=== PATIENT | female | born 1970 | race Caucasian/White ===

== ENCOUNTER 2018-02-06 00:49 | Outpatient (CLI) | payer BC, SELFPAY ==
--- NOTE | 2018-02-06 10:18 | DI.MAMMO_ITS ---
SYMPTOM/DIAGNOSIS: 6 MO FOLLOW UP RIGHT BREAST MAMMOGRAM: Mammograms were interpreted according to the usual protocol including computer analysis with CAD system, tomosynthesis and C view imaging. When compared with the previous images of 06/14/2017 again noted is a well circumscribed area of nodularity in the medial portion of the right breast. There has been no definite interval change. ULTRASOUND: A 7 x 5 x 10 mm ovoid area of diminished echogenicity is noted in the medial right breast tissue with no appreciable interval change when compared with the prior study. This region could represent a region of central fat or proteinaceous cyst and is unlikely to represent an intramammary lymph node. There is nothing specific to suggest a malignancy and follow up surveillance with repeat right breast mammogram and if appropriate ultrasound in one year is recommended. Category 2, breast density category B. MQSA ASSESSMENT OF FINDINGS: Negative with benign findings. Category 2. Patient will receive a letter notifying them of these results. BI-RADS category B. There are scattered areas of fibroglandular density.
== END 2018-02-06 01:09 ==
PROVIDERS: PCP Family Medicine; Visit Provider Family Medicine
DX: Z12.31 Encounter for screening mammogram for malignant neoplasm of breast (principal); R92.8 Other abnormal and inconclusive findings on diagnostic imaging of breast; N60.81 Other benign mammary dysplasias of right breast
CPT/HCPCS: 76642; 77061; 77065; G0279

== ENCOUNTER 2018-07-13 19:59 | Emergency (ER) | payer BC, SELFPAY ==
[2018-07-13 20:05] VITALS: BP 122/74; PULSE 71; RESP 18; TEMP 37; O2SAT 98
[2018-07-13] MEDS: Tetracaine 0.5% 4 ML BTL (20:13)
[2018-07-13] MEDS: Fluorescein STRIPS 100/BOX 1 MG (20:13)
--- NOTE | 2018-07-13 20:22 | W.ED.GENAD ---
Discharge Plan Disposition Patient Disposition: HOME Condition: Improving Discharge Details Chief Complaint: EyeProblem Clinical Impression: Abrasion of cornea, left Primary Care Provider: Laverne Carrion ED Provider: Pablo Quevedo Home Meds and New Rx's Prescriptions: New erythromycin 5 mg/gram (0.5 %) Ointment 3.5 g OS TID 5 Days Qty: [id number] RF: 0 Continued fluticasone [Flonase Allergy Relief] 50 mcg/actuation [place],Suspension 1 spray Intranasal DAILY RF: 0 Control 1 tab PO DAILY RF: 0 Discharge Instructions Instructions: Corneal Abrasion (ED) Additional Instructions: Erythromycin ointment to left eye 3-4 times per day for 5 days. Please call [facility] Sunday for a follow-up appointment to recheck left corneal abrasion. Return for worsening discomfort or any other acute concerns. Tylenol and ibuprofen as needed for pain Medical Decision Making 40-year-old female struck by treatment to the left eye earlier in the day. Ongoing discomfort with mild photophobia brought her to the emergency department this evening. She is unremarkable vital signs, visual acuity is preserved. Her examination reveals corneal abrasion just to the temporal aspect of the axis of vision, no Domo sign negative. Tetanus updated per will place on erythromycin ointment, [id number]-krsoqda analgesia, she is a patient of [facility] and she will follow-up with them to ensure resolution HPI General Mode of arrival: ambulatory. Date/Time Provider Initiated Documentation: 07/13/18 20:00. Limitations to Documentation: no limitations. Information obtained by: patient. History of Present Illness 48 year old F presents to the emergency department with the chief complaint of Struck by tree branch left eye, pain, described as moderate, Quality is described as aching, and is localized to the eyes and left. Patient reports no radiation. Patient started experiencing this hour(s) and it has been constant. No relieving factors improve symptom(s), No exacerbating factors reported . Patient notes other (Photophobia). Patient did receive the following treatments prior to arrival, none Related Data Home Medications Medication Instructions Recorded Confirmed Control 1 tab PO DAILY 07/13/18 erythromycin 3.5 g OS TID 5 Days #73841 gm 07/13/18 fluticasone [Flonase Allergy 1 spray INTRANASAL DAILY 07/13/18 07/13/18 Relief] Previous Rx's Medication Instructions Recorded erythromycin 3.5 g OS TID 5 Days #42537 gm 07/13/18 Allergies Allergy/AdvReac Type Severity Reaction Status Date / Time No Known Allergies Allergy Unverified 07/13/18 20:09 General Stated Complaint: EyeProblem ALEX: 4 Review of Systems Review of Systems 6 systems reviewed and otherwise - [facility] Social History Smoking and Tabacco status: Never Exam Narrative Exam Narrative: GEN: awake, alert, oriented 3. Pleasant, well groomed, interactive. HEAD: Normocephalic, atraumatic ENT: Mucous membranes moist, oropharynx unremarkable, External ear exam unremarkable EYES: PERRL, EOMI. left eye with corneal abrasion on temporal aspect at the cusp of iris. No Domo sign. Mild injection left. No foreign NECK: Full ROM, no MACKENZIE, no menigismus Neuro: Grossly normal neurologic exam, conversant, interactive. Psych: Speech fluent, thoughts congruent, affect normal Course Vital Signs Temperature 37.0 C 07/13/18 20:05 Pulse 71 07/13/18 20:05 Respiratory Rate 18 07/13/18 20:05 Blood Pressure 122/74 07/13/18 20:05 Pulse Oximetry 98 07/13/18 20:05 Temperature 37.0 C 07/13/18 20:05 Temperature Source Temporal Artery Scan 07/13/18 20:05 Pulse 71 07/13/18 20:05 Respiratory Rate 18 07/13/18 20:05 Respiratory Effort 07/13/18 20:05 Blood Pressure 122/74 07/13/18 20:05 Pulse Oximetry 98 07/13/18 20:05 Oxygen Delivery Method Room Air 07/13/18 20:05 Oxygen Flow Rate 0 07/13/18 20:05 Pain Level 0 07/13/18 20:05
[2018-07-13] MEDS: Erythromycin Ophth Oint 3.5 GM TUBE OS (20:37)
[2018-07-13] MEDS: Erythromycin Ophth Oint 3.5 GM TUBE (20:39)
[2018-07-13 21:00] VITALS: BP 118/70; PULSE 73; RESP 18; O2SAT 98
== END 2018-07-13 20:48 | disposition home or self-care (01) ==
PROVIDERS: Emergency Provider Emergency Medicine; PCP Family Medicine
DX: S05.02XA Injury of conjunctiva and corneal abrasion without foreign body, left eye, initial encounter (principal); W22.8XXA Striking against or struck by other objects, initial encounter; Y93.24 Activity, cross country skiing
CPT/HCPCS: 90471; 99284; 99283

== ENCOUNTER 2018-10-14 00:19 | Outpatient (CLI) | payer BC, SELFPAY ==
--- NOTE | 2018-10-14 09:46 | DI.COMBO_ITS ---
SYMPTOM/DIAGNOSIS: SCREENING, F/U ABNL MAMMO ON 10/14 MAMMOGRAMS AND RIGHT BREAST ULTRASOUND: Mammograms were interpreted according to the usual protocol including computer analysis with CAD system, tomosynthesis and C view imaging. Mammogram and right breast ultrasound are interpreted in conjunction. Mammogram was initially intended as a screening examination but the patient recently noted a palpable abnormality in the inferior portion of her right breast. The examination is compared with a previous mammogram and ultrasound of 01/2018. There was a well circumscribed mass noted on the previous examination in the 6 o'clock position in the right breast measuring up to about 1 cm. in diameter at that time. On today's examination, this measures up to about 3 cm. in diameter. This mass contains solid and cystic components and little, if any, internal vascular flow on doppler evaluation. There is mild posterior acoustic enhancement. The borders of the mass are not perfectly circumscribed. The mass is lobulated. Mammographically, apart from the marked interval increase in size of the multi lobulated mass of the inferior aspect of the right breast, no new mass or clumped microcalcification is seen in either breast and there has been no other significant change in appearance in comparison with previous mammograms. CONCLUSION: Marked interval increase in size of indeterminate right breast mass in approximately the 6 o'clock position to 5 o'clock position. The possibility of malignancy is raised on the basis of the interval increase in size and the echo characteristics of this lesion. Biopsy is recommended. Category 4. Breast density, Category C. MQSA ASSESSMENT OF FINDINGS: Suspicious. Biopsy should be considered. Category 4. Patient will receive a letter notifying them of these results. Bi-RADS category C. The breasts are heterogeneously dense, which may obscure small masses.
== END 2018-10-14 00:39 ==
PROVIDERS: PCP Family Medicine; Visit Provider Nurse Practitioner Adult Health
DX: Z12.31 Encounter for screening mammogram for malignant neoplasm of breast (principal); R92.8 Other abnormal and inconclusive findings on diagnostic imaging of breast; N63.14 Unspecified lump in the right breast, lower inner quadrant
CPT/HCPCS: 76642; 77063; 77067

== ENCOUNTER 2018-10-29 06:22 | Day surgery (SDC) | payer BC, SELFPAY ==
[2018-10-29 06:32] VITALS: BP 116/71; PULSE 62; RESP 16; TEMP 36.6; O2SAT 100
[2018-10-29] MEDS: Lactated Ringers 1,000 ML 80 ML IV (06:32)
[2018-10-29] MEDS: ceFAZolin 2 GM/50 ML BAG IVPB (07:34)
--- NOTE | 2018-10-29 07:57 | BREAST_PTH ---
PATIENT: Dacia Oconnor LOC: [facility] U#:[id number] AGE/SX: 48/F ROOM: RE10/29/[address]: Neena Dozier MD : 1970 BED: DIS: 10/29/2018 SPEC #: [id number] RECD: 10/29/18 12:50 STATUS: MUKUL REQ #: [id number] MAXWELL: 10/29/18 07:[address]: Neena Dozier DEPT: Surgical Specimen RECD BY: Laura Stauffer ENTERED: 10/29/18 12:50 SP TYPE: Breast OTHR DR: Laverne Carrion Tissues: 1 - BREAST INCISION/EXCISION Procedures: GROSS AND MICRO LEVEL 5 Comments: [id number]
[2018-10-29] MEDS: Lidocaine 1% Multi-Dose 50 ML VIAL (07:59)
--- NOTE | 2018-10-29 08:26 | W.PM.DSUDISC ---
Discharge Plan Disposition Patient Disposition: HOME Condition: Good Discharge Details Attending Provider: Neena Dozier Primary Care Provider: Laverne Carrion Home Meds and New Rx's Prescriptions: No Action fluticasone propionate [Flonase Allergy Relief] 50 mcg/actuation [place],Suspension 1 spray Intranasal DAILY RF: 0 Control 1 tab PO DAILY RF: 0 Emergen-C 1,000 mg Powder Effervescent In Packet 2,000 mg PO DAILY RF: 0 Discharge Instructions Referrals: Neena Dozier MD [ [facility] STAFF PHYSICIAN] - (Return for office visit in 1-2 weeks as needed. My office will call with biopsy results) Activity:: Activity as Tolerated Remove Dressings/Wound Care:: 24 hours Shower/Bathe:: 24 hours Diet:: As Tolerated Discharge Orders Discharge Orders: Discharge Order (Routine); Ordered 10/29/18 Ordered By: Neena Dozier Discharge Data Discharge Comment: Steri strips stick for about a week. Remove when they are starting to peel off.
--- NOTE | 2018-10-29 08:31 | PDOC.DSDIS_ITS ---
Discharge Plan Disposition Patient Disposition: HOME Condition: Good Discharge Details Attending Provider: Neena Dozier Primary Care Provider: Laverne Carrion Home Meds and New Rx's Prescriptions: No Action fluticasone propionate [Flonase Allergy Relief] 50 mcg/actuation [place] ,Suspension 1 spray Intranasal DAILY RF: 0 Control 1 tab PO DAILY RF: 0 Emergen-C 1,000 mg Powder Effervescent In Packet 2,000 mg PO DAILY RF: 0 Discharge Instructions Referrals: Neena Dozier MD [ [facility] STAFF PHYSICIAN] - (Return for office visit in 1-2 weeks as needed. My office will call with biopsy results) Activity:: Activity as Tolerated Remove Dressings/Wound Care:: 24 hours Shower/Bathe:: 24 hours Diet:: As Tolerated Discharge Orders Discharge Orders: Discharge Order (Routine); Ordered 10/29/18 Ordered By: Neena Dozier Discharge Data Discharge Comment: Steri strips stick for about a week. Remove when they are starting to peel off.
[2018-10-29 08:55] VITALS: BP 79/46; PULSE 58; RESP 18; TEMP 36.6; O2SAT 99
[2018-10-29 09:22] VITALS: BP 85/45; PULSE 58; RESP 18; TEMP 36.6; O2SAT 100
--- NOTE | 2018-10-29 10:12 | ROE_ITS ---
DATE OF PROCEDURE: October 29, 2018 PREOPERATIVE DIAGNOSIS: Right breast mass. POSTOPERATIVE DIAGNOSIS: Same. PROCEDURE: Excisional biopsy of right breast mass. SURGEON: Neena Dozier M.D. PATTERN WORKER: Mihir Pizano ANESTHESIA: Local and general. INDICATIONS: This is a 48-year-old woman with a palpable right breast mass for the past month or so. She had an ultrasound that demonstrated a 3 cm lesion with solid and cystic components. This had increased in size from 1 cm on prior US. Biopsy was advised. The patient has no family history of breast cancer. PROCEDURE: She was placed supine on the operating table and her right breast was prepped and draped sterilely. The mass had been marked preoperatively with the patient and was located at the 6 o'clock position. The skin here was infiltrated with local anesthetic and a transverse incision made. Subcutaneous tissue was divided down to the structure, which did appear primarily cystic in nature. This was excised completely with cautery and sent to Pathology. Palpation in the cavity revealed no other masses. Hemostasis was achieved with cautery. The site was injected with further anesthetic and then the skin closed with a running #4-0 Monocryl in a subcuticular stitched and dressed with Steri- Strips and a Tegaderm. She tolerated the procedure well and was stable to recovery. cc: Laverne Carrion M.D.
== END 2018-10-29 09:55 | disposition home or self-care (01) ==
PROVIDERS: PCP Family Medicine; Visit Provider Surgery
PROC: (CPT 19120; principal; 2018-10-29 07:30)
DX: N63.10 Unspecified lump in the right breast, unspecified quadrant (principal); Q85.8 Other phakomatoses, not elsewhere classified
CPT/HCPCS: 19120; 81025; 88307; J0690; J1885; J2250; J2405

== ENCOUNTER 2019-06-23 10:52 | Outpatient (REF) | payer BC, SELFPAY ==
[2019-06-23 19:42] LABS: HCT 40.2 % (36.0-46.0); HGB 13.3 g/dL (12.0-15.5); Mean Corp. HGB Concentration 33.1 g/dL (32.0-36.0); Mean Corpuscular Hemoglobin 29.7 pg (27.0-33.0); Mean Corpuscular Volume 89.7 fL (80-95); Mean Platelet Volume 11.1 fL (8.0-11.0); Platelet Count 298 x1000/uL (130-400); RBC 4.48 m/cumm (4.00-5.20); RBC Distribution Width 12.6 % (11.7-14.6); White Blood Cell Count 4.35 k/cumm (4.4-10.8)
[2019-06-23 20:05] LABS: Hemoglobin A1C 5.5 % (3.8-5.6)
[2019-06-23 20:22] LABS: ALT 19 U/L (14-59); AST 21 U/L (15-37); Albumin 3.5 g/dL (3.4-5.0); Alkaline Phosphatase 45 U/L (46-116); BUN 11 mg/dL (7-18); Bilirubin, Total 0.2 mg/dL (0.2-1.0); CREATININE 0.78 mg/dL (0.55-1.02); Calcium 8.5 mg/dL (8.5-10.1); Chloride 105 mmol/L (98-107); Glucose 93 mg/dL (74-106); Sodium 139 mmol/L (136-145); TSH (W/Ref FT4) 1.21 uIU/mL (0.36-3.74); Total Protein 6.6 g/dL (6.4-8.2)
== END 2019-06-23 11:12 ==
LOC: NCHCN 10:52
PROVIDERS: PCP Family Medicine; Visit Provider Family Medicine
DX: E66.3 Overweight (principal)
CPT/HCPCS: 80053; 85027; 83036; 84443

== ENCOUNTER 2019-10-21 01:43 | Outpatient (CLI) | payer BC, SELFPAY ==
--- NOTE | 2019-10-21 08:35 | DI.MAMMO_ITS ---
EXAM: MG MAMMO SCREENING CLINICAL HISTORY: SCREENING,Z12.39,HAMARTOMA,Q85.9 TECHNIQUE: Bilateral full field digital CC and MLO mammographic images were obtained with 3D tomosyn thesis and utilizing computer aided detection (CAD). COMPARISON: Available for comparison. FINDINGS: Masses/Architectural Distortion: None seen. Microcalcifications: No suspicious pleomorphic-type are seen. Skin Thickening/Nipple Retraction: None. IMPRESSION: 1. No significant interval change with no specific features of malignancy noted. 2. Unless there is more urgent need, screening mammography is recommended, as per [place] [employer] guidelines. BI-RADS Category 1 - Negative Breast Density - Category B - Scattered areas of fibroglandular density A negative radiographic report should not delay biopsy if a dominant or clinically suspicious mass is present. Up to ten percent of cancers are not identified on mammography. A negative report may reinforce clinical impression. Adenosis and dense breasts may obscure an underlying neoplasm. False positive reports average 6 to 10%. Patient will receive a letter notifying them of these results.
== END 2019-10-21 02:03 ==
PROVIDERS: PCP Family Medicine; Visit Provider Family Medicine
DX: Z12.31 Encounter for screening mammogram for malignant neoplasm of breast (principal)
CPT/HCPCS: 77063; 77067

== ENCOUNTER 2020-11-03 16:54 | Outpatient (REF) | payer BC, SELFPAY ==
[2020-11-03 20:23] LABS: ESR 5 mm/hr (0-20)
[2020-11-03 20:28] LABS: C-Reactive Protein 0.79 mg/dL (0.0-0.3); Uric Acid 4.4 mg/dL (2.6-6.0)
[2020-11-05 10:11] LABS: Cyclic Citrullinated Peptide <2.5 U/mL (<5.0)
[2020-11-05 14:14] LABS: Lyme Ab w Rflx to Lyme Confirm Negative (Negative)
[2020-11-05 15:04] LABS: ANA Interpretation Positive (Negative); ANA Titer Pattern 1:160 Speckled
[2020-11-06 00:05] LABS: Anaplasma phagocytophilum Negative (Negative); B. miyamotoi PCR Negative (Negative); Babesia divergens/MO-1 Negative (Negative); Babesia duncani Negative (Negative); Babesia microti Negative (Negative); Ehrlichia chaffeensis Negative (Negative); Ehrlichia ewingii/canis Negative (Negative); Ehrlichia muris eauclairensis Negative (Negative)
== END 2020-11-03 16:55 | disposition home or self-care (01) ==
LOC: NCHCN 16:54
PROVIDERS: PCP Family Medicine; Visit Provider Family Medicine
DX: M25.561 Pain in right knee (principal)
CPT/HCPCS: 85652; 86200; 87798; 84550; 86038; 86140; 86618

== ENCOUNTER 2021-02-25 09:31 | Outpatient (REF) | payer BC, SELFPAY ==
--- NOTE | 2021-02-25 08:30 | PAPFT_PTH ---
PATIENT: Dacia Oconnor LOC: [facility]#:[id number] AGE/SX: 50/F ROOM: RE02/25/[address]: Laverne Carrion : 1970 BED: DIS: 02/25/2021 SPEC #: [id number] RECD: 02/28/21 11:14 STATUS: MUKUL REAlex #: [id number] MAXWELL: 02/25/21 08:[address]: Laverne Carrion DEPT: [facility] Cytology RECD BY: Екатерина Arriaga Tissues: 1 - CX/ENDOCX FOR PAP SMEARS Procedures: PAP THIN PREP/UVM Screening Comments: [id number] (UNSATISFACTORY FOR EVALUATION)
== END 2021-02-25 09:32 | disposition home or self-care (01) ==
LOC: NCHCN 09:31
PROVIDERS: PCP Family Medicine; Visit Provider Family Medicine
DX: Z12.4 Encounter for screening for malignant neoplasm of cervix (principal); Z01.419 Encounter for gynecological examination (general) (routine) without abnormal findings; R87.615 Unsatisfactory cytologic smear of cervix
CPT/HCPCS: 88142

== ENCOUNTER 2021-04-22 00:29 | Outpatient (CLI) | payer BC, SELFPAY ==
--- NOTE | 2021-04-22 08:00 | DI.MAMMO_ITS ---
Exam(s) MAMMO SCREENING EXAM: MAMMO SCREENING CLINICAL HISTORY: SCREENING FOR BREAST CANCER Z12.39 TECHNIQUE: Bilateral full field digital CC and MLO mammographic images were obtained with 3D tomosyn thesis and utilizing computer aided detection (CAD). COMPARISON: Available for comparison. FINDINGS: Masses/Architectural Distortion: None seen. Microcalcifications: No suspicious pleomorphic-type are seen. Skin Thickening/Nipple Retraction: None. IMPRESSION: 1. No significant interval change with no specific features of malignancy noted. 2. Unless there is more urgent need, screening mammography is recommended, as per [place] [employer] guidelines. BI-RADS Category 1 - Negative Breast Density - Category B - Scattered areas of fibroglandular density Breast density category C or D implies that the patient has dense breast tissue. Dense breast tissue is very common and is not abnormal but dense breast tissue can make it harder to find cancer on a ma mmogram. Also, dense breast tissue may increase their breast cancer risk. This information about the result of the mammogram report was provided to the patient to raise their awareness. Use this report when you speak with the patient about their risks for breast cancer, which includes their family hist ory. At that time, you may recommend for more screening tests (Ultrasound or MRI) as they might be us eful based on their risk. A negative radiographic report should not delay biopsy if a dominant or clinically suspicious mass is present. Up to ten percent of cancers are not identified on mammography. A negative report may reinforce clinical impression. Adenosis and dense breasts may obscure an underlying neoplasm. False positive reports average 6 to 10%. Patient will receive a letter notifying them of these results.
== END 2021-04-22 00:49 ==
PROVIDERS: PCP Family Medicine; Visit Provider Family Medicine
DX: Z12.31 Encounter for screening mammogram for malignant neoplasm of breast (principal)
CPT/HCPCS: 77063; 77067

== ENCOUNTER 2021-10-21 19:06 | Outpatient (REF) | payer BC, SELFPAY ==
[2021-10-21 14:56] LABS: Calculated LDL 108 mg/dL (<100); Cholesterol 190 mg/dL (<200); HDL Cholesterol 61 mg/dL (40-60); Triglyceride 108 mg/dL (<150)
[2021-10-24 09:55] LABS: HIV-1/2 Ag & Ab Screen Negative (Negative)
[2021-10-24 10:20] LABS: Hepatitis C Ab w Rflx HCV PCR Negative (Negative)
== END 2021-10-21 19:07 | disposition home or self-care (01) ==
LOC: NCHCN 19:06
PROVIDERS: PCP Family Medicine; Visit Provider Family Medicine
DX: Z11.4 Encounter for screening for human immunodeficiency virus [HIV] (principal); Z11.59 Encounter for screening for other viral diseases; Z13.220 Encounter for screening for lipoid disorders
CPT/HCPCS: 80061; 86803; 87389

== ENCOUNTER 2021-12-21 15:02 | Outpatient (REF) | payer BC, SELFPAY ==
--- NOTE | 2021-12-21 14:20 | PAPFT_PTH ---
PATIENT: Dacia Oconnor LOC: [facility] U#:[id number] AGE/SX: 51/F ROOM: RE12/21/[address]: Capri Snow DO : 1970 BED: DIS: 12/21/2021 SPEC #: [id number] RECD: 12/21/21 18:40 STATUS: MUKUL REQ #: [id number] MAXWELL: 12/21/21 14:[address]: Capri Snow DEPT: [facility] Cytology RECD BY: Laura Stauffer ENTERED: 12/21/21 18:40 SP TYPE: PAPFT OTHR DR: Laverne Carrion Tissues: 1 - CX/ENDOCX FOR PAP SMEARS Procedures: PAP THIN PREP/UVM Screening HPV DNA PROBE Comments: [id number]
== END 2021-12-21 15:03 | disposition home or self-care (01) ==
LOC: LBN 15:02
PROVIDERS: PCP Family Medicine; Visit Provider Obstetrics & Gynecology
DX: Z12.4 Encounter for screening for malignant neoplasm of cervix (principal); Z11.51 Encounter for screening for human papillomavirus (HPV)
CPT/HCPCS: 88142; 87624

== ENCOUNTER 2022-05-04 06:10 | Day surgery (SDC) | payer BC, SELFPAY ==
--- NOTE | 2022-05-03 20:17 | PDOC.DSDIS_ITS ---
Date of service: 05/04/22 Time of Service: 08:00 Discharge Plan Disposition Patient Disposition: Home Condition: Good Discharge Details Reason For Visit: screening colonoscopy Attending Provider: Ciro Caldwell Primary Care Provider: Laverne Carrion Home Meds and New Rx's Prescriptions: Continued norethindrone ac-eth estradiol [Aurovela 06/02 (21)] 1-20 mg-mcg tablet 1 tab PO DAILY Qty: 63 3RF cholecalciferol (vitamin D3) 10 mcg (400 unit) capsule 10 mcg PO DAILY fluticasone propionate [Flonase Allergy Relief] 50 mcg/actuation [place],Suspension 1 spray Intranasal DAILY Emergen-C 1,000 mg Powder Effervescent In Packet 2,000 mg PO DAILY Discontinued bisacodyl [Dulcolax (bisacodyl)] 5 mg tablet,delayed release (DR/EC) 5 mg PO ONCE Qty: 4 0RF Rx Instructions: Take according to provider's instructions for colonoscopy prep. polyethylene glycol 3350 17 gram/dose powder 17 g PO ONCE Qty: 238 0RF Rx Instructions: To be taken as directed by prescriber's office for colonoscopy prep. Discharge Instructions Additional Instructions: 1. If tolerated, consume a soft, low fiber diet for 1-2 days. 2[address] Do not drive, drink alcohol, operate machinery, make critical decisions, or do activities that require coordination or balance for 24 hours. 3. Because air was put into your colon during the procedure, expelling air from your rectum (passing gas or farting) is normal. 4. You may not have a bowel movement for 1-3 days because of the colonoscopy pr ep. This is normal. 5. Go directly to the emergency room if you notice any of the following: Develop chills (warm to touch), or if you have a thermometer and your temperature is above 101 Difficulty breathing or difficultly swallowing Persistent vomiting Severe abdominal pain, other than gas cramps Severe chest pain Black, tarry stools Any bleeding ? exceeding one tablespoon 6. Call your physician if the site where your intravenous was started becomes red, swollen, painful, and warm to touch. 7. Your physician has reviewed your pre-procedure medications. Please continue to take those medications as previously ordered. You will be given specific information/education regarding any changes to your medications before leaving. Activity:: Activity as Tolerated Diet:: As Tolerated Discharge Orders Discharge Orders: Discharge Order (Routine); Ordered 05/03/22 Ordered By: Ciro Caldwell DS: Diagnosis Discharge Diagnosis (1) Screening for colon cancer: Status: Acute Asessment and Plan: Your colonoscopy was normal. You should undergo another screening colonoscopy in 10 years
--- NOTE | 2022-05-03 20:19 | W.COLOREPORT ---
Date of service: 05/04/22 Time of Service: 08:00 Colonoscopy Report Date of procedure: 05/04/22 Pre-op diagnosis general: Routine health maintenance screening colonoscopy Post-op diagnosis procedure note: same Procedure: colonoscopy Surgeon: Ciro Caldwell Anesthesia Type: General:No Airway Estimated blood loss (mL): 0 Pathology: none sent Complications: None Disposition: same day Indications: Dacia is a 51 year old woman undergoing her first screening colonoscopy Prep: Miralax/Dulcolax Procedure Start Time: 07:37 Procedure End Time: 07:51 Retraction Time: 11 Findings: Normal colonoscopy Procedure Description: After the induction of monitored anesthetic care, and with the patient in left lateral decubitus position, I began by performing an external anorectal exam.? Perineum and skin were normal, as was the anal verge.? There was no evidence of external hemorrhoids.? Next, I performed a digital rectal exam.? I did not appreciate any abnormal findings.? Next, I advanced a colonoscope into the rectal vault.? I performed retroflexion.? This was normal. Using insufflation, I then advanced the colonoscope beyond the rectal folds and into the sigmoid colon before advancing towards the cecum.? The quality of the prep was excellent.? The scope was noted to be in the cecum by identification of the ileocecal valve and appendiceal orifice.? I then began withdrawing the colonoscope using repeated irrigation as necessary for full evaluation of the colonic mucosa. ?Once the scope was withdrawn to the level of the rectum, great care was taken to examine portions of the rectal folds.? I did not see any evidence of any polyps or other concerning lesions. Finally, the scope was withdrawn and the patient was brought to the same-day surgery recovery unit as the anesthetic wore off. ?The findings and instructions were shared with the patient prior to discharge.
--- NOTE | 2022-05-04 06:26 | ANES.PREOP_ITS ---
General Info Date of Service Date Performed: 05/04/22 Height: 5 ft 3 in Weight: 75.5 kg Body Mass Index (BMI): 29.5 Surgical Procedure: Operation Date: 05/04/22 07:35 Proposed Procedure Side Surgeon lisy Caldwell MD Meds Allergies and Home Medications Allergies Allergy/AdvReac Type Severity Reaction Status Date / Time No Known Allergies Allergy Verified 05/04/22 06:33 Home Medication Medication Instructions Recorded fluticasone propionate 50 1 spray intranasal DAILY 07/13/18 mcg/actuation nasal spray,suspension (Flonase Allergy Relief) ascorbic acid 1,000 2,000 mg PO DAILY 10/28/18 [id number]-rzkpmpbbhkqn-trrtivga powder effervescent pack (Emergen-C) cholecalciferol (vitamin D3) 10 10 mcg PO DAILY 06/24/21 mcg (400 unit) capsule norethindrone acetate 1 mg-ethinyl 1 tab PO DAILY #63 tabs 12/21/21 estradiol 20 mcg tablet (Aurovela) Current Visit Medications: Current Medications Generic Name Dose Route Start Last Admin Trade Name Freq PRN Reason Stop Dose Admin Hyoscyamine Sulfate 0.125 mg 05/03/22 20:21 Hyoscyamine 0.125 Mg Sl/Oral/Chew SL DIRECTED PRN Ringer's Solution 1,000 mls @ 80 mls/hr 05/04/22 06:00 IV 06/02/22 23:59 INFUSION CRUZ IV Miscellaneous Supplies 1 each 05/04/22 06:00 Iv Access IV 06/02/22 23:59 DIRECTED CRUZ Ondansetron HCl 4 mg 05/03/22 20:21 Ondansetron 4 Mg/2 Ml Vial IVP Q4H PRN PRN Nausea / Vomiting Sodium Chloride 0 ml 05/04/22 06:00 Normal Saline Flush 10 Ml Syr IV 06/02/22 23:59 PRN PRN Sodium Chloride 0 ml 05/04/22 06:00 Normal Saline 10 Ml Vial IJ 06/02/22 23:59 DIRECTED PRN Sterile Water 0 ml 05/04/22 06:00 Water,Injection,Sterile 10 Ml Vial IJ 06/02/22 23:59 DIRECTED PRN PFSH Active Problems Active Problems: Problem Status Onset Code Screening for colon cancer Z12.11 Unsatisfactory cervical Papanicolaou smear R87.615 Enlarged uterus N85.2 Overweight (BMI 25.0-29.9) E66.3 Mass of right breast N63.10 Medical History Medical History Allergic rhinitis Breast mass, right 10/14/18 - followed by Dr Carrion x one year, now larger, mostly cystic but some solid component, after mammo radiologist suggests US guided biopsy. Effusion of right knee joint Hearing loss Perimenopausal Solar lentigo Surgical History Surgical History Status post excisional biopsy 10/29/18 Dr Neena Dozier, [facility]. 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 Tobacco Smoking/Tobacco Use Status: Never Alcohol Alcohol Intake: current Alcohol intake frequency: 0-2 drinks per day Substance Use Substance use: Never Substance use type: does not use Details: alcohol 2 days ago Prental History History 0 Para Hx # Term Pregnancies Multiple births Hx # Pregnancies Ectopic pregnancies AB induced Hx Number of Living Children AB spontaneous Vital Signs and Lab Results Lab Results Blood Type / Crossmatch: No Data to Display Complete Blood Count: No Data to Display Complete Metabolic Panel: No Data to Display Liver Function Panel: No Data to Display Coagulation Panel: No Data to Display Cardiac Panel: No Data to Display Arterial Blood Gas: No Data to Display Venous Blood Gas: No Data to Display Pancreas Panel: No Data to Display Thyroid Panel: No Data to Display Infectious Disease: No Data to Display Blood Cultures: No Data to Display Toxicology Panel: No Data to Display Panel: No Data to Display Anesthesia Assessment and Plan Anesthesia History Personal History: No History of Anesthesia Complications Family History: No Family History of Anesthesia Complications Exercise Tolerance Exercise Tolerance: Metabolic Equivalents>4 Pertinent Negatives Pertinent Negatives: No Symptoms of GERD Cardiac & Pulmonary Exam Cardiac Exam: Normal S1/S2 Heart Sounds Pulmonary Exam: Clear Bilateral Breath Sounds Implantable Cardiac Device Does patient have a Pacemaker or an ICD?: No Airway Exam Known Difficult Airway: No Mallampati Class: 2 Mouth Opening: Normal (> 3cm) Thyromental Distance: Greater than 3 cm Neck Range of Motion: Full ROM Neck Circumference: Normal Teeth Condition: Normal Dentition ASA Classification ASA Score: ASA 2 Emergency Case?: No NPO Status NPO Status: NPO Clears >2 hours, Solids >8 hours Status Status: Negative HCG Anesthesia Plan Resuscitation Status: Full Code Anesthesia Technique: General Anesthesia Airway Planned: Natural Airway Monitors Used: Standard Monitors
[2022-05-04 06:33] VITALS: BP 123/68; PULSE 65; RESP 16; TEMP 36.5; O2SAT 99
[2022-05-04] MEDS: Lactated Ringers 1,000 ML 80 ML IV (06:44)
[2022-05-04 07:58] VITALS: BP 107/66; PULSE 62; RESP 16; TEMP 36.1; O2SAT 98
[2022-05-04 08:24] VITALS: BP 127/89; PULSE 62; RESP 16; TEMP 36.9; O2SAT 100
[2022-05-04 08:41] VITALS: BMI 29.5
--- NOTE | 2022-05-04 08:43 | W.ANESPOSTOP ---
Postoperative Evaluation Date, Time and Location Date Performed: 05/04/22 Time Performed: 07:58 Patient Location: Day Surgery Unit Vital Signs Most Recent Imported Vital Signs: Most Recent Vital Signs Temp Pulse Resp BP Pulse Ox 36.9 C 62 16 127/89 100 05/04/22 08:24 05/04/22 08:24 05/04/22 08:24 05/04/22 08:24 05/04/22 08:24 Pain Score Most Recent Pain Score: Most Recent Pain Score Pain Level 0 05/04/22 08:24 Assessment Mental Status: Awake (Alert & Oriented to Patient Baseline) Airway and Respiratory Function: Patent airway with normal (patient baseline) respiratory exam Cardiovascular Function: Hemodynamically Stable Hydration Status: Adequately Hydrated Nausea & Vomiting: No Nausea or Vomiting Pain: Pt. Denies Any Pain Peripheral Nerve Block: Patient did not receive a nerve block
== END 2022-05-04 08:40 | disposition home or self-care (01) ==
PROVIDERS: PCP Family Medicine; Visit Provider Surgery
PROC: 0DJD8ZZ Inspection of Lower Intestinal Tract, Via Natural or Artificial Opening Endoscopic (ICD-10-PCS; CPT 45378; principal; 2022-05-04 07:30)
DX: Z12.11 Encounter for screening for malignant neoplasm of colon (principal)
CPT/HCPCS: 45378; 81025

== ENCOUNTER 2022-06-26 00:13 | Outpatient (CLI) | payer BC, SELFPAY ==
--- NOTE | 2022-06-26 07:30 | DI.MAMMO_ITS ---
Exam(s) MAMMO SCREENING EXAM: MAMMO SCREENING CLINICAL HISTORY: SCREENING, Z12.39 TECHNIQUE: Mammograms were interpreted according to the usual protocol including computer analysis w [email or web address] CAD system, tomosynthesis and C-view imaging. COMPARISON: 2013 through 2020 FINDINGS: The breasts are composed of scattered fibroglandular densities, Breast Density category B. No suspicious masses or suspicious microcalcifications are seen. No skin thickening or abnormal axillary lymph nodes are seen. There has been no significant change from prior exams. IMPRESSION: BI-RADS Category 1, Negative mammogram Yearly screening mammography is recommended. Breast Density - Category B, scattered fibroglandular densities. A negative radiographic report should not delay biopsy if a dominant or clinically suspicious mass is present. Up to ten percent of cancers are not identified on mammography. A negative report may reinforce clinical impression. Adenosis and dense breasts may obscure an underlying neoplasm. False positive reports average 6 to 10%. Patient will receive a letter notifying them of these results.
== END 2022-06-26 00:33 ==
LOC: DI 00:13
PROVIDERS: PCP Family Medicine; Visit Provider Family Medicine
DX: Z12.31 Encounter for screening mammogram for malignant neoplasm of breast (principal)
CPT/HCPCS: 77063; 77067

== ENCOUNTER 2023-04-27 15:35 | Outpatient (REF) | payer BC, SELFPAY ==
[2023-04-27 16:02] LABS: Calculated LDL 159 mg/dL (<100); Cholesterol 251 mg/dL (<200); Glucose 109 mg/dL (74-106); HDL Cholesterol 78 mg/dL (40-60); Triglyceride 74 mg/dL (<150)
[2023-04-27 16:13] LABS: Hemoglobin A1C 5.3 % (<5.7)
== END 2023-04-27 15:36 | disposition home or self-care (01) ==
LOC: NCHCN 15:35
PROVIDERS: PCP Family Medicine; Visit Provider Family Medicine
DX: Z00.00 Encounter for general adult medical examination without abnormal findings (principal); Z13.220 Encounter for screening for lipoid disorders; Z13.1 Encounter for screening for diabetes mellitus
CPT/HCPCS: 80061; 82947; 83036

== ENCOUNTER 2024-07-11 00:16 | Outpatient (CLI) | payer BC, SELFPAY ==
--- NOTE | 2024-07-11 | DI.MAMMO_ITS ---
Exam(s) MAMMO SCREENING EXAM: MAMMO SCREENING CLINICAL HISTORY: SCREENING MAMMO Z12.31. TECHNIQUE: Bilateral full field digital CC and MLO mammographic images were obtained with 3D tomosyn thesis and utilizing computer aided detection (CAD). COMPARISON: Prior mammograms were reviewed. FINDINGS: There has been no significant change in the appearance and distribution of the fibroglandular tissue. There are no CAD designations. There are no new spiculated masses nor malignant appearing microcalcification groups. No new findings in the area of prior lesion in the right breast (previous biopsy). There is no significant architectural distortion nor skin thickening-retraction. IMPRESSION: No radiographic evidence of malignancy. BI-RADS Category 1 - Negative Breast Density - Category B - Scattered areas of fibroglandular density Breast density Category C or D implies that the patient has dense breast tissue. Dense breast tissue can make it harder to find cancer on a mammogram. Dense breast tissue is also associated with an incr eased risk of breast cancer. This information about the result of the mammogram report was provided to the patient to raise their awareness. Use this report when you speak with the patient about their risks for breast cancer, which includes their family history. At that time, you may recommend additional screening tests (Ultrasoun d or MRI) as these tests may add significant information. A negative radiographic report should not delay biopsy if a dominant or clinically suspicious mass is present. Up to ten percent of cancers are not identified on mammography. A negative report may reinforce clinical impression. Adenosis and dense breasts may obscure an underlying neoplasm. False positive reports average 6 to 10%. Patient will receive a letter notifying them of these results.
== END 2024-07-11 00:36 ==
LOC: DI 00:16
PROVIDERS: PCP Family Medicine; Visit Provider Family Medicine
DX: Z12.31 Encounter for screening mammogram for malignant neoplasm of breast (principal); R92.323 Mammographic fibroglandular density, bilateral breasts
CPT/HCPCS: 77063; 77067

== ENCOUNTER 2024-08-14 21:54 | Outpatient (REF) | payer BC, SELFPAY | END 2024-08-14 21:55 | disposition home or self-care (01) | LOC: LBN 21:54 | PROVIDERS: PCP Family Medicine; Visit Provider Physician Assistant Medical | DX: R30.0 Dysuria (principal) | CPT/HCPCS: 87086 ==

== ENCOUNTER 2024-10-24 11:46 | Outpatient (REF) | payer BC, SELFPAY ==
[2024-10-24 15:37] LABS: HCT 43.2 % (36.0-46.0); HGB 13.8 g/dL (11.2-15.7); MCH 28.8 pg (27.0-33.0); MCHC 31.9 % (32.0-36.0); MCV 90 fL (80-95); MPV 10.3 fL (8.0-11.0); Platelet Count 265 10^3/uL (130-400); RBC 4.79 10^6/uL (3.93-5.22); RDW 12.3 % (11.7-14.6); RDW-SD 40.4 fL; WBC 5.54 10^3/uL (4.4-10.8)
[2024-10-24 16:04] LABS: Hemoglobin A1C 5.5 % (<5.7)
[2024-10-24 16:06] LABS: ALT 30 U/L (14-59); AST 22 U/L (15-37); Alkaline Phosphatase 94 U/L (46-116); Anion Gap 7.3 mmol/L (3-11); BUN 11 mg/dL (7-18); Bilirubin, Total 0.5 mg/dL (0.2-1.0); CO2 30.7 mmol/L (21.0-32.0); CREATININE 0.8 mg/dL (0.55-1.02); Calculated LDL 160 mg/dL (<100); Chloride 103 mmol/L (98-107); Cholesterol 246 mg/dL (<200); Glucose 97 mg/dL (74-106); HDL Cholesterol 71 mg/dL (>or=50); Potassium 4.3 mmol/L (3.5-5.1); Sodium 141 mmol/L (136-145); TSH (W/Ref FT4) 0.76 uIU/mL (0.36-3.74); Total Protein 7.2 g/dL (6.4-8.2); Triglyceride 77 mg/dL (<150)
== END 2024-10-24 11:47 | disposition home or self-care (01) ==
LOC: NCHCN 11:46
PROVIDERS: PCP Family Medicine; Visit Provider Family Medicine
DX: R53.83 Other fatigue (principal); Z13.1 Encounter for screening for diabetes mellitus
CPT/HCPCS: 80053; 80061; 85027; 83036; 84443